=== PATIENT | male | born 1970 | race Caucasian/White ===

== ENCOUNTER 2021-02-07 19:22 | Emergency (ER) | payer SELFPAY ==
[~2021-02-07] VITALS: Ht 182.9 cm; Wt 143.2 kg
[2021-02-07 19:28] VITALS: BP 145/86
[2021-02-07] MEDS ORDERED: amox tr/potassium clavulanate 875/125mg TAB PO ONE (21:20)
[2021-02-07] MEDS ORDERED: LIDOcaine 1% W/epiNEPHrine 1:200,000 10ml vial IJ ONE (21:20)
[2021-02-07] MEDS ORDERED: bacitracin 15gm ointment TP ONE (21:20)
[2021-02-07] MEDS ORDERED: LIDOcaine 1% W/epiNEPHrine 1:100,000 20ml vial IJ ONE (21:25)
[2021-02-07] MEDS ORDERED: AMOX-422 PO (22:05)
== END 2021-02-07 22:31 | disposition home or self-care (01) ==
LOC: ER 19:23
DX: S61.216A Laceration without foreign body of right little finger without damage to nail, initial encounter (principal); Z79.2 Long term (current) use of antibiotics; W54.0XXA Bitten by dog, initial encounter; Y93.89 Activity, other specified; Y92.89 Other specified places as the place of occurrence of the external cause; Y99.8 Other external cause status
CPT/HCPCS: 12001; 99283

== ENCOUNTER 2021-08-04 22:34 | Emergency (ER) | payer BC ==
[~2021-08-04] VITALS: Ht 182.9 cm; Wt 136.4 kg
[2021-08-04 23:13] LABS: BASOPHILS # (AUTO) 0.1 X10'3 (0-0.2); BASOPHILS % (AUTO) 1.1 % (0-1); EOSINOPHILS # (AUTO) 0.2 X10'3 (0-0.9); EOSINOPHILS % (AUTO) 3.4 % (0-6); HEMOGLOBIN 13.6 g/dl (14.0-17.9); LYMPHOCYTES # (AUTO) 2.6 X10'3 (1.1-4.8); LYMPHOCYTES % (AUTO) 41.5 % (21-51); MEAN CORPUSCULAR HEMOGLOBIN 28.1 PG (27.0-31.0); MEAN CORPUSCULAR HGB CONC 33.2 g/dL (33.0-36.5); MEAN CORPUSCULAR VOLUME 84.8 FL (78-98); MEAN PLATELET VOLUME 7.5 FL (7.4-10.4); MONOCYTES # (AUTO) 0.6 X10'3 (0-0.9); NEUTROPHILS # (AUTO) 2.8 X10'3 (1.8-7.7); PLATELET COUNT 222 X10'3 (140-440); RED BLOOD COUNT 4.84 X10'6 (4.70-6.10); RED CELL DISTRIBUTION WIDTH 14.1 % (11.5-14.5); WHITE BLOOD COUNT 6.3 X10'3 (4.5-11.0)
[2021-08-04] MEDS ORDERED: acyclovir 200 MG capsule PO ONE (23:15)
[2021-08-04] MEDS ORDERED: predniSONE 20 mg tablet PO ONE (23:15)
[2021-08-04 23:26] LABS: APTT 27 SECONDS (22-32)
[2021-08-04 23:29] LABS: ALANINE AMINOTRANSFERASE 46 U/L (12-78); ALBUMIN 3.4 G/DL (3.4-5.0); ALBUMIN/GLOBULIN RATIO 1.1 (1.1-1.5); ALKALINE PHOSPHATASE 81 IU/L (46-116); ANION GAP 8 (8-16); ASPARTATE AMINO TRANSFERASE 31 U/L (10-37); BILIRUBIN,TOTAL 0.5 MG/DL (0.1-1.0); BLOOD UREA NITROGEN 13 MG/DL (7-18); BUN/CREATININE RATIO 13.3 (5.4-32.0); CALCIUM 8.2 MG/DL (8.5-10.1); CHLORIDE 101 MMOL/L (99-107); CREATININE 0.98 MG/DL (0.60-1.10); GLUCOSE 257 MG/DL (70-104); POTASSIUM 3.9 MMOL/L (3.5-5.1); SODIUM 135 MMOL/L (135-145); TOTAL PROTEIN 6.4 G/DL (6.4-8.2); eGFR 82 ML/MIN
[2021-08-04] MEDS ORDERED: ACYC200C PO (23:44)
[2021-08-04] MEDS ORDERED: PRED20TA PO (23:44)
[2021-08-04 23:45] LABS: CLARITY,URINE CLEAR (Clear); COLOR,URINE YELLOW (Yellow); GLUCOSE, URINE >=1000 mg/dl (Neg); KETONES,URINE NEGATIVE (Neg); LEUKOCYTE ESTERASE ,URINE NEGATIVE (Neg); NITRITES, URINE NEGATIVE (Neg); OCCULT BLOOD,URINE NEGATIVE (Neg); PH,URINE 5.5 (4.8-8.0); PROTEIN,URINE NEGATIVE (Neg); UROBILINOGEN,URINE 0.2 E.U/dL (0.2-1.0)
[2021-08-04 23:50] LABS: UA COLLECTION TYPE CLN CATCH MIDSTREAM
[2021-08-04 23:56] LABS: BACTERIA,URINE FEW /HPF (Neg); RBC,URINE 0-2 /HPF (0-2)
[2021-08-04 23:57] LABS: SQUAMOUS EPITHELIAL CELL,UR FEW /LPF (FEW)
[2021-08-05 00:01] VITALS: BP 148/90
== END 2021-08-05 00:20 | disposition home or self-care (01) ==
LOC: ER 22:35
DX: G51.0 Bell's palsy (principal)
CPT/HCPCS: 36415; 70450; 70496; 70498; 71045; 80053; 81001; 85025; 85610; 85730; 86885; 86900; 86901; 87088; 93005; 99285; J7512